=== PATIENT | female | born 1975 | race Caucasian/White ===

== ENCOUNTER 2018-12-07 12:13 | Observation (INO) ==
--- NOTE | 2018-12-07 12:38 | Emergency Department Note ---
Disposition Clinical Impression: Suicidal ideation Disposition: Admitted As Inpatient Condition: Fair Referrals: NONE,PCP [Primary Care Provider] - Forms: ED Satisfaction Letter Time of Disposition: 15:32 General Adult HPI - General Chief complaint: ED Psychiatric Symptoms Stated complaint: SI Time Seen by Provider: 12/07/18 12:32 Source: family Limitations: no limitations Nursing Notes Reviewed: Yes Vital Signs Reviewed: Yes - History of Present Illness HPI Narrative: Patient presents to the emergency department with a chief complaint of suicidal thoughts. History of similar. She was evaluated last week for the same and sent home with a safety plan. Patient states she feels worse and she is having thoughts of taking a handful of pills. She states she has she can get anything off the street. She denies taking anything today. Patient is on BuSpar and Latuda.. Pain Scale: 0 - Related Data Home Medications Medication Instructions Recorded Confirmed Buspirone HCl [Buspar] 10 mg PO BID 12/07/18 12/07/18 Diclofenac Sodium [Voltaren] 75 mg PO BID PRN 12/07/18 12/07/18 Lurasidone [Latuda] 20 mg PO DAILY 12/07/18 12/07/18 Omeprazole [PriLOSEC] 40 mg PO DAILY 12/07/18 12/07/18 Allergies Allergy/AdvReac Type Severity Reaction Status Date / Time No Known Allergies Allergy Verified 12/01/18 00:23 All systems ED: reviewed and negative except as stated. Constitutional: Denies: fever Cardiovascular: Denies: chest pain Respiratory: Denies: dyspnea Gastrointestinal: Denies: abdominal pain Past Medical History - Past Medical History Attestation: Yes The following information was validated with the patient. Source: patient Medical history: Reports: GERD Psychiatric history: Reports: anxiety, bipolar, depression - Social History Smoking Status: Current every day smoker Smokeless Tobacco Status: No Alcohol use: Reports: none Drug use: Reports: none Physical Exam - General Limitations: no limitations General appearance: alert, in no apparent distress, anxious - Head Head exam: atraumatic, normocephalic - ENT ENT exam: normal exam - Neck Neck exam: Present: normal inspection - Chest Chest inspection: Present: normal inspection - Respiratory Respiratory exam: Present: normal lung sounds bilaterally - Cardiovascular Cardiovascular exam: Present: regular rate, normal rhythm - Neurological Exam Neurological exam: Present: alert, oriented X3 - Psychiatric Psychiatric exam: Present: depressed, flat affect - Skin Skin exam: Present: warm, dry Course Course Narrative: Patient tearful but cooperative. Medical clearance and evaluation by [facility]. - Reevaluation(s) Reevaluation #1: [facility] has been called for consultation. Time: 13:56 Reevaluation #2: Patient admitted to psych. Time: 15:32 Vital Signs Temperature 97.9 F 12/07/18 12:17 Pulse Rate 76 12/07/18 12:17 Respiratory Rate 18 12/07/18 12:17 Blood Pressure 154/87 12/07/18 12:17 O2 Sat by Pulse Oximetry 96 12/07/18 12:17 Temperature 97.9 F 12/07/18 12:17 Pulse Rate 76 12/07/18 12:17 Respiratory Rate 18 12/07/18 12:17 Blood Pressure 154/87 12/07/18 12:17 O2 Sat by Pulse Oximetry 96 12/07/18 12:17 Oxygen Delivery Oxygen Delivery Room Air Medical Decision Making - Lab Data Result diagrams: 12/07/18 12:58 12/07/18 12:58 Lab Results 12/07/18 12/07/18 12/07/18 Range/Units 12:31 12:31 12:31 WBC (4.3-11.1) K/mcL RBC (3.82-4.97) M/mcL Hgb (11.5-15.4) g/dL Hct (35.3-44.9) % MCV (83.0-100.0) fL MCH (28.0-33.3) pg MCHC (31.6-35.5) g/dL RDW (11.5-14.5) % Plt Count (140-400) K/mcL MPV (9.4-12.4) fL Immature Gran % (0-4) % Seg Neutrophils % % Lymphocytes % % Monocytes % % Eosinophils % % Basophils % % Neutrophils # (1.6-8.9) K/mcL Lymphocytes # (0.6-4.6) K/mcL Monocytes # (0.0-1.3) K/mcL Eosinophils # (0.0-0.6) K/mcL Basophils # (0.0-0.2) K/mcL Platelet Estimate (Normal) Sodium (136-145) mEq/L Potassium (3.5-5.1) mEq/L Chloride (98-107) mEq/L Carbon Dioxide (23-29) mEq/L BUN (6-20) mg/dL Creatinine (0.60-1.20) mg/dL Est GFR ( Amer) (> 60) Est GFR (Non-Af Amer) (> 60) BUN/Creatinine Ratio (6-26) Glucose (70-105) mg/dL Calculated Osmolality (280-300) Calcium (8.6-10.3) mg/dL Urine Color Yellow (Yellow) Urine Clarity Clear (Clear) Urine pH 6.0 (5.0-8.0) pH Units Ur Specific [place] 1.007 L (1.010-1.025) Urine Protein Negative (Neg-Trace) mg/dL Urine Glucose (UA) Normal (Normal) mg/dL Urine Ketones Negative (Negative) mg/dL Urine Blood Negative (Negative) Urine Nitrite Negative (Negative) Urine Bilirubin Negative (Negative) Urine Urobilinogen Normal (Normal) mg/dL Ur Leukocyte Esterase Negative (Negative) Urine Test Negative (Negative) Salicylates (15.0-30.0) mg/dL Urine Opiates Screen Negative (Dseeyt=624) ng/mL Acetaminophen (10-20) mcg/mL Ur Barbiturates Screen Negative (Cfpjpb=925) ng/mL Ur Phencyclidine Scrn Negative (Cutoff=25) ng/mL Ur Amphetamines Screen Negative (Ppwael=1279) ng/mL U Benzodiazepines Scrn Positive H (Fofxbo=335) ng/mL Urine Cocaine Screen Negative (Cutoff= 300) ng/mL U Marijuana (THC) Screen Negative (Cutoff = 50) ng/mL Ur Drug Screen Interp See Below Ethyl Alcohol (Less than 10) mg/dL 12/07/18 12/07/18 Range/Units 12:58 12:58 WBC 8.1 (4.3-11.1) K/mcL RBC 4.15 (3.82-4.97) M/mcL Hgb 12.8 (11.5-15.4) g/dL Hct 38.7 (35.3-44.9) % MCV 93.3 (83.0-100.0) fL MCH 30.8 (28.0-33.3) pg MCHC 33.1 (31.6-35.5) g/dL RDW 13.2 (11.5-14.5) % Plt Count 284 D (140-400) K/mcL MPV 9.4 (9.4-12.4) fL Immature Gran % 0.2 (0-4) % Seg Neutrophils % 68.4 % Lymphocytes % 26.4 % Monocytes % 4.7 % Eosinophils % 0.1 % Basophils % 0.2 % Neutrophils # 5.6 (1.6-8.9) K/mcL Lymphocytes # 2.2 (0.6-4.6) K/mcL Monocytes # 0.4 (0.0-1.3) K/mcL Eosinophils # 0.0 (0.0-0.6) K/mcL Basophils # 0.0 (0.0-0.2) K/mcL Platelet Estimate Normal (Normal) Sodium 144 (136-145) mEq/L Potassium 3.8 (3.5-5.1) mEq/L Chloride 111 H (98-107) mEq/L Carbon Dioxide 26 (23-29) mEq/L BUN 8 (6-20) mg/dL Creatinine 0.78 (0.60-1.20) mg/dL Est GFR ( Amer) > 60 (> 60) Est GFR (Non-Af Amer) > 60 (> 60) BUN/Creatinine Ratio 10 (6-26) Glucose 102 (70-105) mg/dL Calculated Osmolality 297 (280-300) Calcium 9.5 (8.6-10.3) mg/dL Urine Color (Yellow) Urine Clarity (Clear) Urine pH (5.0-8.0) pH Units Ur Specific [place] (1.010-1.025) Urine Protein (Neg-Trace) mg/dL Urine Glucose (UA) (Normal) mg/dL Urine Ketones (Negative) mg/dL Urine Blood (Negative) Urine Nitrite (Negative) Urine Bilirubin (Negative) Urine Urobilinogen (Normal) mg/dL Ur Leukocyte Esterase (Negative) Urine Test (Negative) Salicylates < 2.5 L (15.0-30.0) mg/dL Urine Opiates Screen (Upnmik=713) ng/mL Acetaminophen < 10 L (10-20) mcg/mL Ur Barbiturates Screen (Qplfrz=677) ng/mL Ur Phencyclidine Scrn (Cutoff=25) ng/mL Ur Amphetamines Screen (Ggkkef=7123) ng/mL U Benzodiazepines Scrn (Ksjbdr=685) ng/mL Urine Cocaine Screen (Cutoff= 300) ng/mL U Marijuana (THC) Screen (Cutoff = 50) ng/mL Ur Drug Screen Interp Ethyl Alcohol < 10 (Less than 10) mg/dL
--- NOTE | 2018-12-07 12:42 | Emergency Department Note ---
Disposition Forms: ED Satisfaction Letter Psych HPI - General Chief Complaint: ED Psychiatric Symptoms Stated Complaint: SI Time Seen by Provider: 12/07/18 12:32 Source: family - Related Data Allergies Allergy/AdvReac Type Severity Reaction Status Date / Time No Known Allergies Allergy Verified 12/01/18 00:23 Constitutional: Denies: fever Cardiovascular: Denies: chest pain Respiratory: Denies: dyspnea Gastrointestinal: Denies: abdominal pain Past Medical History - Past Medical History Medical history: Reports: GERD Psychiatric history: Reports: anxiety, bipolar, depression - Social History Smoking Status: Current every day smoker Smokeless Tobacco Status: No Alcohol use: Reports: none Drug use: Reports: none Physical Exam - General Limitations: no limitations General appearance: alert, in no apparent distress, anxious Course Vital Signs Temperature 97.9 F 12/07/18 12:17 Pulse Rate 76 12/07/18 12:17 Respiratory Rate 18 12/07/18 12:17 Blood Pressure 154/87 12/07/18 12:17 O2 Sat by Pulse Oximetry 96 12/07/18 12:17 Temperature 97.9 F 12/07/18 12:17 Pulse Rate 76 12/07/18 12:17 Respiratory Rate 18 12/07/18 12:17 Blood Pressure 154/87 12/07/18 12:17 O2 Sat by Pulse Oximetry 96 12/07/18 12:17 Oxygen Delivery Oxygen Delivery Room Air Psych - Lab Data Lab Results 12/07/18 Range/Units 12:31 Ur Drug Screen Interp See Below Psychiatric Medical Clearance - Medical Clearance Checklist Medical History: No Social History Section defined Current Vitals: Last Vital Signs Temp 97.9 F 12/07/18 12:17 Pulse 76 12/07/18 12:17 Resp 18 12/07/18 12:17 BP 154/87 12/07/18 12:17 Pulse Ox 96 12/07/18 12:17 Statement of Medical Clearance: I have evaluated the patient, reviewed diagnostic information, and certify that the patient's medical condition is sufficiently stable that transfer to the psychiatric unit does not pose a significant risk of deterioration.
[2018-12-07] MEDS ORDERED: *HR* LORazepam 0.5 MG TABLET PO ONE (12:54)
[2018-12-07 13:04] LABS: Bilirubin,Urine Negative (Negative); Blood,Urine Negative (Negative); Clarity,Urine Clear (Clear); Color,Urine Yellow (Yellow); Glucose,Urine (UA) Normal (Normal); Ketones,Urine Negative (Negative); Leukocyte Esterase,Urine Negative (Negative); Nitrite,Urine Negative (Negative); Protein,Urine Negative (Neg-Trace); Specific Gravity,Urine 1.007 (1.010-1.025); Urobilinogen,Urine Normal (Normal)
[2018-12-07 13:09] LABS: Amphetamine Screen,Urine Negative ng/mL (Cutoff=1000); Barbiturate Screen,Urine Negative ng/mL (Cutoff=200); Benzodiazepines Screen,Urine Positive ng/mL (Cutoff=200); Cannabinoid Screen,Urine Negative ng/mL (Cutoff = 50); Cocaine Screen,Urine Negative ng/mL (Cutoff= 300); Opiate Screen,Urine Negative ng/mL (Cutoff=300); Phencyclidine Screen,Urine Negative ng/mL (Cutoff=25)
[2018-12-07 13:20] LABS: Basophils % 0.2 %; Eosinophils % 0.1 %; Hematocrit 38.7 % (35.3-44.9); Hemoglobin 12.8 g/dL (11.5-15.4); Immature Granulocytes % 0.2 % (0-4); Lymphocytes # 2.2 K/mcL (0.6-4.6); Lymphocytes % 26.4 %; Mean Corpuscular HGB Conc 33.1 g/dL (31.6-35.5); Mean Corpuscular Hemoglobin 30.8 pg (28.0-33.3); Mean Corpuscular Volume 93.3 fL (83.0-100.0); Mean Platelet Volume 9.4 fL (9.4-12.4); Monocytes # 0.4 K/mcL (0.0-1.3); Monocytes % 4.7 %; Neutrophils # 5.6 K/mcL (1.6-8.9); Platelet Count 284 K/mcL (140-400); Red Blood Count 4.15 M/mcL (3.82-4.97); Red Cell Distribution Width 13.2 % (11.5-14.5); Segmented Neutrophils % 68.4 %
[2018-12-07 13:22] LABS: Platelet Estimate Normal (Normal)
[2018-12-07 13:33] LABS: Acetaminophen < 10 mcg/mL (10-20); BUN/Creatinine Ratio 10 (6-26); Blood Urea Nitrogen 8 mg/dL (6-20); Calcium 9.5 mg/dL (8.6-10.3); Carbon Dioxide 26 mEq/L (23-29); Chloride 111 mEq/L (98-107); Ethanol < 10 mg/dL (Less than 10); Glucose 102 mg/dL (70-105); Osmolality,Calculated 297 (280-300); Potassium 3.8 mEq/L (3.5-5.1); Salicylate < 2.5 mg/dL (15.0-30.0); Sodium 144 mEq/L (136-145); eGFR For Non-African Americans > 60 (> 60)
[2018-12-07] MEDS ORDERED: *HR* LORazepam 1 MG TABLET PO PRN (16:26)
[2018-12-07] MEDS ORDERED: Mag Hydrox/Al Hydrox/Simeth 30 ML UDC PO PRN (16:26)
[2018-12-07] MEDS ORDERED: MOM Conc 10 ML UD.LIQ PO PRN (16:26)
[2018-12-07] MEDS ORDERED: hydrOXYzine pamoate 25 MG CAPSULE PO PRN (16:26)
[2018-12-07] MEDS ORDERED: Haloperidol Lactate 5 MG/ML VIAL IM PRN (16:26)
[2018-12-07] MEDS ORDERED: traZODone 50 MG TABLET PO PRN (16:26)
[2018-12-07] MEDS ORDERED: Ibuprofen 400 MG TABLET PO PRN (16:26)
[2018-12-07] MEDS ORDERED: *HR* LORazepam 2 MG/ML VIAL IM PRN (16:26)
[2018-12-07] MEDS ORDERED: Diclofenac Sodium 75 MG TABLET PO PRN (16:28)
[2018-12-07] MEDS: BUSPIRONE HCL 10 MG TABLET PO SCH (20:22)
[2018-12-08 08:36] VITALS: BP 108/75
[2018-12-08] MEDS ORDERED: Lurasidone 20 MG TABLET PO SCH (09:00)
[2018-12-08] MEDS: BUSPIRONE HCL 10 MG TABLET PO SCH (09:19)
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
== END 2018-12-08 13:45 | disposition home or self-care (01) ==
LOC: EMEROOARM 12:13 → 1ANU 16:03 → INTOOBSV 16:03 → 1ANU 17:40
PROVIDERS: ADMIT Psychiatry & Neurology Psychiatry; ATTEND Psychiatry & Neurology Psychiatry